=== PATIENT | male | born 1970 | race Caucasian/White ===

== ENCOUNTER 2019-08-14 04:54 | Inpatient (IN) ==
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
--- NOTE | 2019-07-26 12:06 | PAT Medication Instructions ---
Medication Instructions Date of Service July 26, 2019 Home Medications atorvastatin 80 mg PO QAM famotidine 40 mg PO QAM loratadine 10 mg PO QPM meloxicam 15 mg PO HS oxycodone-acetaminophen 1 tab PO Q6H PRN tizanidine 2 - 4 mg PO HS Take morning of surgery With a small sip of water, OTHERWISE NOTHING TO EAT OR DRINK AFTER MIDNIGHT: atorvastatin 80 mg PO QAM famotidine 40 mg PO QAM oxycodone-acetaminophen 1 tab PO Q6H PRN (if needed, may be taken up to four hours before surgery) Take evening before surgery loratadine 10 mg PO QPM meloxicam 15 mg PO HS oxycodone-acetaminophen 1 tab PO Q6H PRN (if needed) tizanidine 2 - 4 mg PO HS Other Notes If you have any questions please call us at [phone] or [phone] or [phone] or [phone]
--- NOTE | 2019-07-26 12:17 | Anesthesiology Consultation ---
Date of Service July 26, 2019 Assessment & Plan (1) Encounter for pre-operative examination: Chart Review Chart Review: Acceptable Risk for Surgery (pending pre op testing -- labs ekg and cxr-- and surgeon ordered PCP clearance) and Patient seen in Pre Admission Testing Teaching & Discussion Instructed NPO after midnight before surgery, except medications with 15 cc of water. Medication instructions provided according to the PAT guidelines. History Surgery Operation Date: 08/14/19 10:20 Proposed Procedures p Right Total Knee Arthroplasty - Eloy Marmolejo DO Height/Weight Height: 5 ft 8.5 in Weight: 142.7 kg Allergies Allergy/AdvReac Type Severity Reaction Status Date / Time No Known Allergies Allergy Verified 07/25/19 15:33 Medications Home Medications Medication Instructions Recorded Confirmed Last Taken atorvastatin 80 mg PO QAM 07/25/19 07/25/19 07/24/19 famotidine 40 mg PO QAM 07/25/19 07/25/19 07/24/19 loratadine 10 mg PO DAILY 07/25/19 07/25/19 Unknown meloxicam 15 mg PO HS 07/25/19 07/25/19 Unknown oxycodone-acetaminophen 1 tab PO Q6H PRN 07/25/19 07/25/19 Unknown tizanidine 2 - 4 mg PO HS 07/25/19 07/25/19 Unknown Past Medical History Medical History Acid reflux Arthritis Hiatal hernia High cholesterol History of kidney stones Low back pain Morbid obesity Sleep apnea CPAP Thyroid mass NO MEDS/MONITOR Trouble swallowing ENDOSCOPY FEW MONTHS AGO - NO FINDINGS Exercise / Class Metabolic Activity II 4-5 Yardwork/Stairs/Walk up hill (Denies CP or SOB with 1 FOS) Past Family History Family History Aunt Family history of diabetes mellitus Grandmother Family history of diabetes mellitus Past Surgical History Surgical History History of appendectomy History of cholecystectomy History of endoscopy History of hernia surgery History of right knee surgery MULTIPLE Past Anesthesia History No Hx of Anesthesia Complications and No Family Hx of Anesthesia Complications History of PONV No Hx of PONV and Hx of Motion Sickness Social History Smoking Status: Former smoker Do You Dip or Chew Tobacco: Yes (1 CAN PER DAY/ADVISED NPO) Smoking End Date: 12+YRS AGO Hx Alcohol Use: No (HX OF , NONE CURRENT) Hx Substance Use: No substance use type: does not use Review of Systems Pt denies any recent chest pain, shortness of breath, palpitations, cough, fever or URI. Physical Exam Vital Signs BP: 111/73 P: 90bpm SPO2: 99% RA T: 97.9 F R: 16 Constitutional + morbidly obese ENMT Mouth: + dentition abnormality (missing one) and + chipped teeth (many); no dental restorations and no loose teeth Thyromental Distance: > or= 3.5 Finger Breadths (3.5) Mallampati Class: III Neck + short neck, + thick neck and + facial hair (very long goatee, trimmed around mouth); neck extension not limited Respiratory normal respiratory effort Auscultation: lungs clear to auscultation bilaterally Cardiovascular Rate/Rhythm: regular rate and regular rhythm Heart Sounds: no murmur
--- NOTE | 2019-07-26 12:55 | XRay Report ---
XR chest Pre-admission PA/Lat CLINICAL HISTORY: 48 years-old Male presenting with preoperative assessment. TECHNIQUE: PA and lateral views of the chest were obtained. COMPARISON: None. FINDINGS: Cardiomediastinal silhouette normal. Lungs and pleural spaces clear. Osseous structures normal. Small hiatal hernia suggested. IMPRESSION: 1. No acute cardiopulmonary disease. ACT 112: Negative or not required by law. Electronically signed by: Rudy Shelton M.D. 07/26/2019 12:53 PM
[2019-07-26 12:58] LABS: Appearance Urine Clear (Clear); Bilirubin Urine Negative (Negative); Blood Urine Negative (Negative); Color Urine Yellow; Glucose Urine UA Negative (Negative); Ketones Urine Negative (Negative); Leukocyte Esterase Urine Negative (Negative); Nitrite Urine Negative (Negative); Protein Urine Negative (Negative); Specific Gravity Urine 1.009 (1.000-1.030); Urobilinogen Urine Negative (Negative)
[2019-07-26 12:59] LABS: Basophils # (auto) 0.01 K/uL (0-0.2); Basophils % (auto) 0.2 %; Eosinophils # (auto) 0.16 K/uL (0-0.5); Eosinophils % (auto) 2.8 %; Hemoglobin 15.7 g/dL (14.0-18.0); Immature Granulocytes # (auto) 0.01 K/uL (0.00-0.02); Immature Granulocytes % (auto) 0.2 %; Lymphocytes # (auto) 1.56 K/uL (1.2-3.4); Lymphocytes % (auto) 27.7 %; Mean Corpuscular Hgb Conc 34.1 g/dL (32-36); Mean Corpuscular Volume 93.7 fL (80-100); Mean Platelet Volume 9.6 fL (7.4-10.4); Monocytes # (auto) 0.29 K/uL (0.11-0.59); Monocytes % (auto) 5.2 %; Neutrophils % (auto) 63.9 %; Platelet Count 184 K/uL (130-400); RDW Coefficient of Variation 13.1 % (11.5-14.5); RDW Standard Deviation 44.7 fL (36.4-46.3); Red Blood Count 4.91 M/uL (4.7-6.1); White Blood Count 5.63 K/uL (4.8-10.8)
--- NOTE | 2019-07-26 13:03 | Electrocardiogram Report ---
Test Reason : Blood Pressure : / mmHG Vent. Rate : 082 BPM Atrial Rate : 082 BPM P-R Int : 140 ms QRS Dur : 090 ms QT Int : 348 ms P-R-T Axes : 021 052 021 degrees QTc Int : 406 ms Normal sinus rhythm Normal ECG No previous ECGs available Confirmed by Dillon Higgins ([id number]) on 07/26/2019 1:03:18 PM Referred By: Eloy Marmolejo Confirmed By:Dillon Higgins
[2019-07-26 13:05] LABS: Partial Thromboplastin Time 26.3 Seconds (21.0-31.0); Prothrombin Time 10.3 Seconds (9.0-12.0)
[2019-07-26 13:08] LABS: Albumin Level 3.8 gm/dl (3.4-5.0); BUN Creatinine Ratio 13.2 (10-20); Creatinine Clr Calc Pharmacy 113.2 ml/min; Est GFR (African American) 88.9; Est GFR (Non-African American) 76.7; Potassium 3.8 mmol/L (3.5-5.1)
[2019-07-26 13:09] LABS: Estimated Average Glucose 108 mg/dl; Hemoglobin A1C 5.4 % (4.5-5.6)
[2019-08-14] MEDS ORDERED: ACETAMINOPHEN 500 MG TAB PO SCH (06:00)
[2019-08-14] MEDS ORDERED: LR 500ML BOLUS, THEN 15ML/HR IV SCH (06:00)
[2019-08-14] MEDS ORDERED: CeleBREX 200 MG CAP PO SCH (06:00)
[2019-08-14] MEDS ORDERED: TRANEXAMIC ACID 1,000 MG **IV Intra-op IV SCH (06:00)
[2019-08-14] MEDS ORDERED: CEFAZOLIN 3000MG 72.5 ML IV SCH (06:00)
[2019-08-14] MEDS ORDERED: ROPIVACAINE 0.5% HCL/PF 150 MG, BUPIVACAINE 0.5% MPF 30 ML, EPINEPHrine 30MG/30ML (OR U... INFIL SCH (06:00)
[2019-08-14] MEDS ORDERED: GABAPENTIN 900 MG DOSE PO SCH (06:00)
[2019-08-14] MEDS ORDERED: TRANEXAMIC ACID 1,000 MG **IV Pre-op IV SCH (06:00)
[2019-08-14] MEDS ORDERED: dexAMETHasone 4 MG TAB PO SCH (06:00)
[2019-08-14] MEDS ORDERED: FAMOTIDINE 20 MG TAB PO SCH (06:00)
[2019-08-14] MEDS ORDERED: ROPIVACAINE 0.5% 5 MG/ML 30 ML VIAL ONE (06:15)
[2019-08-14] MEDS ORDERED: BUPIVACAINE 0.5 % 5 MG/1 ML PF 10ML VIAL ONE (06:15)
[2019-08-14] MEDS ORDERED: ORTHO JOINT ANESTHETIC ONE (06:32)
[2019-08-14] MEDS ORDERED: BACITRACIN INJ 50,000 UNIT VIAL ONE (06:32)
[2019-08-14] MEDS ORDERED: KETOROLAC 30 MG/ML VIAL IV PRN (06:41)
[2019-08-14] MEDS ORDERED: ONDANSETRON INJ 2 MG/ML 2 ML VIAL IV PRN ×2 (06:41→09:19)
[2019-08-14] MEDS ORDERED: HYDROmorphone INJ 1 MG/ML SYRINGE IV PRN (06:41)
[2019-08-14] MEDS ORDERED: ePHEDrine sulfate 50 MG/ML AMP IV PRN (06:41)
[2019-08-14] MEDS ORDERED: ATROPINE SULFATE 0.1 MG/ML 10ML SYR IV PRN (06:41)
[2019-08-14] MEDS ORDERED: LIDOCAINE HCL 2% 2 ML VIAL/AMP(20MG/ML) INFIL ONE (06:46)
[2019-08-14] MEDS ORDERED: MIDAZOLAM HCL 1 MG/ML 2ML VIAL ONE ×3 (06:46→07:28)
[2019-08-14] MEDS ORDERED: PROPOFOL IV EMULSION 10 MG/ML 20 ML VIAL IV ONE (06:46)
[2019-08-14] MEDS ORDERED: fentaNYL citrate 100 MCG/2 ML VIAL ONE (06:46)
--- NOTE | 2019-08-14 07:08 | History & Physical Bridge Note ---
Date of Service August 14, 2019 History & Physical Bridge Note I have examined the patient, reviewed the History & Physical and in the interval since the performance of the History & Physical I have noted the following changes of clinical significance: no changes noted
--- NOTE | 2019-08-14 08:27 | Operative Report ---
Post Operative Report Pre & Post Diagnosis Operation Date: 08/14/19 07:00 Pre-Op Diagnosis: RIGHT KNEE OSTEOARTHRITIS Post-Op Diagnosis: RIGHT KNEE OSTEOARTHRITIS I identified the patient and participated in the time-out.: Yes Procedure Operation Date: 08/14/19 07:00 Actual Procedures p Right Total Knee Arthroplasty(Right) utilizing [employer] journey 2 patient matched total knee arthroplasty size 5 femur 4 tibia 11 polyethylene 32 oval patella- Eloy Marmolejo DO Surgeon Eloy Marmolejo DO [employer] [place] Estimated Blood Loss 5 Findings Consistent with Post-Op Diagnosis Patient presents with severe end-stage tricompartmental degenerative joint disease [id number] tricompartmentally subchondral sclerosis cystic changes marginal osteophytes varus alignment moderate to large effusion no response to conservative management Specimens Bone and cartilage Drains Medium bore Hemovac Complications none Disposition Accompanied Patient To Recovery: No Disposition: Recovery Room Indications Patient presents being seen today with planes of severe end-stage tricompartmental degenerative joint disease for right total knee arthroplasty for failed attempted conservative management clinic physical therapy anti- inflammatories relative rest activity modification corticosteroid injection Visco supplementation bracing patient presents the above intraoperative findings Description of Procedure After proper prepping and draping of the Right lower extremity anterior midline incision was made over the region of the extensor extensor mechanism after meticulous hemostasis was obtained and maintained in subcutaneous tissues a medial parapatellar incision was made The patella was subluxed lateralward the medial lateral gutter were cleaned from any hypertrophic synovitis and scar tissue of the distal femoral block was placed and the distal femoral osteotomy cut was made subsequently the chamfers anterior and posterior osteotomy cuts were made utilizing the 4-in-1 block the tibia was subsequently subluxed anteriorward medial and ateral meniscal remnants were excised in their entirety remnants of the anterior and posterior cruciate ligaments were excised in their entirety excellent exposure of the proximal tibia was obtained the tibial osteotomy guide was placed on the proximal tibial osteotomy cut was made once again the knee was irrigated with copious amounts of sterile saline solution the patella was subsequently everted lateralward thickened scar tissue around the patella was removed the patella was subsequently cut utilizing a freehand technique and was drilled prepared for final preparation and placement of patella socially flexion-extension gaps were checked and the equal and symmetric trials were placed to the appropriate femoral and tibial trials with poly-spacer being placed for equal flexion and extension gaps and full range of motion including extension to 0 and flexion to 140 the trial components after having been taken to recovery range of motion was subsequently removed meticulous hemostasis was obtained and maintained subsequently a knee block injection of joint cocktail including ropivacaine 0.5% 150 mg. Bupivacaine 0.5% epinephrine 1-200,030 mL's toradol 30 mg dexamethasone 4 mg ketamine 10 mg clonidine 100 micrograms normal saline solution 30 mg was infiltrated into the soft tissues of the posterior knee medial lateral gutters and periosteal synovium special attention was paid to protect neurovascular structures at all times subsequently trial components having been removed the knee was irrigated with sterile saline solution. debris was removed the proximal tibia was subsequently prepared and was made ready for the placement of the tibial component tibial component was also cemented and tamped into position the femoral component was subsequently placed and cemented in the position the patellar component was subsequently cemented in position because hemostasis once again obtained and maintained wound having been thoroughly irrigated with debridement and debridement lavage was performed as well as a medial parapatellar incision closed with #1 Vicryl in interrupted fashion subcutaneous was closed with #2 Vicryl skin was closed with skin clips. PA-C was necessary for prepping and drapping as well as wound closure of deep fascia Sub cutaneous tissue and skin and was necessary for the case. A sterile compressive dressing was placed patient was taken to recovery in stable condition of report dictated by Jaleel I attest to the content of the Intraoperative Record and any orders documented therein. Any exceptions are noted below. I attest to the content of the Intraoperative Record and any orders documented therein. Any exceptions are noted below.
[2019-08-14] MEDS ORDERED: bisacodyL 10 MG SUPP PR PRN (09:19)
[2019-08-14] MEDS ORDERED: NALOXONE HCL 0.4 MG/1 ML VIAL/CARP IV PRN (09:19)
[2019-08-14] MEDS ORDERED: METOCLOPRAMIDE HCL INJ 5 MG/ML 2 ML VIAL IV PRN (09:19)
--- NOTE | 2019-08-14 09:44 | XRay Report ---
XR knee RT 1 or 2V routine CLINICAL HISTORY: Surgical Post Op COMPARISON: None. DISCUSSION: Total right knee arthroplasty in good position. Could contact between prosthetic and unde rlying bone. There is no evidence for soft tissue swelling. IMPRESSION: Anatomic alignment posttotal right knee arthroplasty ACT 112: Negative or not required by law. The above report was generated using voice recognition software. It may contain grammatical, syntax or spelling errors. Electronically signed by: Fidel Wilson M.D. 08/14/2019 9:43 AM
--- NOTE | 2019-08-14 10:07 | Anesthesiology Progress Note ---
Date of Service August 14, 2019 Anesthesia Post Procedure Vital Signs Vital Signs: Temp Pulse Resp BP Pulse Ox 08/14/19 10:00 80 18 121/98 96 08/14/19 09:50 76 18 108/77 96 08/14/19 09:40 78 16 122/71 98 08/14/19 09:30 87 16 122/62 97 08/14/19 09:20 87 16 128/82 98 08/14/19 09:11 36.8 C 102 H 16 125/76 95 08/14/19 05:42 36.8 C 78 20 140/82 96 Pain Intensity Bilateral Knee: Pain Intensity: 8 Transfer of Care Handoff Completed per policy Notes Mental Status: alert / awake / arousable Patient Amnestic to Procedure: Yes Nausea / Vomiting: adequately controlled Pain: adequately controlled Airway Patency, RR, SpO2: stable & adequate BP & HR: stable & adequate Hydration State: stable & adequate Anesthetic Complications: no major complications apparent
[2019-08-14] MEDS ORDERED: ZOLPIDEM TARTRATE 5 MG TAB PO PRN (10:55)
[2019-08-14] MEDS: SODIUM CHLORIDE 0.9% 1000ML 1,000 ML IV SCH ×2 (11:00→22:28)
[2019-08-14] MEDS: KETOROLAC 30 MG/ML VIAL IV SCH ×2 (12:24→17:54)
[2019-08-14] MEDS: ACETAMINOPHEN 500 MG TAB PO SCH ×2 (13:37→21:00)
[2019-08-14] MEDS: MAGNESIUM HYDROXIDE SUSP 30 ML UDC PO PRN (14:36)
[2019-08-14] MEDS: CEFAZOLIN 2000MG 2,000 MG/15 ML SYR IV SCH ×2 (14:46→22:44)
[2019-08-14] MEDS: OXYCODONE HCL IR 5 MG TAB (IMMEDIATE RELEASE) PO PRN (19:45)
[2019-08-14] MEDS: DOCUSATE SODIUM 100 MG CAP PO SCH (20:56)
[2019-08-14] MEDS: ASPIRIN 81 MG ECTAB PO SCH (20:57)
[2019-08-14] MEDS: SENNA 8.6 MG TAB PO SCH (20:57)
[2019-08-14] MEDS: TIZANIDINE HCL 4 MG TABLET PO SCH (21:52)
[2019-08-15] MEDS: KETOROLAC 30 MG/ML VIAL IV SCH ×2 (00:09→06:10)
[2019-08-15] MEDS: OXYCODONE HCL IR 5 MG TAB (IMMEDIATE RELEASE) PO PRN ×5 (06:09→23:20)
[2019-08-15] MEDS: ACETAMINOPHEN 500 MG TAB PO SCH ×3 (06:09→22:02)
[2019-08-15 06:12] LABS: Hemoglobin 12.7 g/dL (14.0-18.0); Mean Corpuscular Hemoglobin 31.4 pg (25-34); Mean Corpuscular Hgb Conc 33.4 g/dL (32-36); Mean Corpuscular Volume 94.1 fL (80-100); Mean Platelet Volume 9.5 fL (7.4-10.4); Platelet Count 167 K/uL (130-400); RDW Coefficient of Variation 13.1 % (11.5-14.5); RDW Standard Deviation 44.9 fL (36.4-46.3); Red Blood Count 4.04 M/uL (4.7-6.1); White Blood Count 10.48 K/uL (4.8-10.8)
[2019-08-15 06:50] LABS: BUN Creatinine Ratio 17.2 (10-20); Calcium 8.4 mg/dl (8.5-10.1); Creatinine Clr Calc Pharmacy 123.8 ml/min; Est GFR (African American) 99.3; Est GFR (Non-African American) 85.7; Potassium 4.1 mmol/L (3.5-5.1)
--- NOTE | 2019-08-15 07:58 | Anesthesiology Progress Note ---
Date of Service August 15, 2019 Anesthesia Post Procedure Vital Signs Vital Signs: Temp Pulse Pulse Resp BP Pulse Ox 08/15/19 07:30 37.1 C 96 H 18 141/73 H 100 08/15/19 03:30 36.6 C 80 18 145/83 H 98 08/14/19 23:20 36.5 C 80 18 121/67 95 08/14/19 20:15 36.5 C 93 H 16 120/63 94 08/14/19 15:17 36.7 C 87 16 129/74 95 08/14/19 13:36 36.8 C 100 H 16 145/83 H 96 08/14/19 12:30 36.9 C 87 18 137/78 96 08/14/19 11:25 84 16 112/72 95 08/14/19 11:00 36.7 C 79 16 134/74 96 08/14/19 10:10 36.6 C 82 18 116/71 96 08/14/19 10:00 80 18 121/98 96 08/14/19 09:50 76 18 108/77 96 08/14/19 09:40 78 16 122/71 98 08/14/19 09:30 87 16 122/62 97 08/14/19 09:20 87 16 128/82 98 08/14/19 09:11 36.8 C 102 H 16 125/76 95 Pain Intensity Bilateral Knee: Pain Intensity: 8 Right Knee: Pain Intensity: 4 Notes Mental Status: alert / awake / arousable and participated in evaluation Patient Amnestic to Procedure: Yes Nausea / Vomiting: adequately controlled Pain: adequately controlled Airway Patency, RR, SpO2: stable & adequate BP & HR: stable & adequate Hydration State: stable & adequate Neuraxial Anesthesia: was administered and sensory block resolved Anesthetic Complications: no major complications apparent and Pt Satisfied with anesthetic care
[2019-08-15] MEDS: MULTIVITAMIN TAB PO SCH (07:59)
[2019-08-15] MEDS: FAMOTIDINE 40 MG TABLET PO SCH (07:59)
[2019-08-15] MEDS: ASPIRIN 81 MG ECTAB PO SCH ×2 (07:59→22:04)
[2019-08-15] MEDS: LORATADINE 10 MG TAB PO SCH (07:59)
[2019-08-15] MEDS: ATORVASTATIN 40 MG TAB PO SCH (07:59)
[2019-08-15] MEDS: DOCUSATE SODIUM 100 MG CAP PO SCH ×2 (07:59→22:03)
--- NOTE | 2019-08-15 08:09 | Orthopedic Progress Note ---
Date of Service August 15, 2019 Assessment & Plan (1) Arthritis of right knee: Postop day 1 status post right total knee arthroplasty PT/OT protocols. Weightbearing as tolerated. DVT prophylaxis with aspirin twice daily, SCDdavid, MAYO mckeon. Pain management with hydromorphone, oxycodone, Tylenol, Celebrex DC planning-patient hoping for home health services upon discharge. Subjective Postop day 1 Patient awake and alert. Currently lying in bed with his heel props placed by nursing staff for exercises. He states that his pain is fairly well controlled. Patient did not sleep well. He denies any shortness of breath, chest pain, lightheadedness. He is hoping to go home today. Physical Exam Physical Exam: Dressings are clean, dry, and intact. Calves are soft and nontender. Neurovascular is intact. Toes are mobile. He has good dorsiflexion and plantarflexion of the ankle and foot on the operative side. Hemovac drainage was 100 cc from the previous shift. Results & Data ([facility]) Vital Signs (Past 12 Hours) Vital Signs Temp Pulse Resp BP Pulse Ox 08/15/19 07:30 37.1 C 96 H 18 141/73 H 100 08/15/19 03:30 36.6 C 80 18 145/83 H 98 08/14/19 23:20 36.5 C 80 18 121/67 95 08/14/19 20:15 36.5 C 93 H 16 120/63 94 Laboratory Results Laboratory Results WBC 10.48 K/uL (4.8-10.8) 08/15/19 05:47 RBC 4.04 M/uL (4.7-6.1) L 08/15/19 05:47 Hgb 12.7 g/dL (14.0-18.0) L 08/15/19 05:47 Hct 38.0 % (42-52) L 08/15/19 05:47 MCV 94.1 fL (80-100) 08/15/19 05:47 MCH 31.4 pg (25-34) 08/15/19 05:47 MCHC 33.4 g/dL (32-36) 08/15/19 05:47 RDW Std Deviation 44.9 fL (36.4-46.3) 08/15/19 05:47 RDW Coeff of Emilee 13.1 % (11.5-14.5) 08/15/19 05:47 Plt Count 167 K/uL (130-400) 08/15/19 05:47 MPV 9.5 fL (7.4-10.4) 08/15/19 05:47 Immature Gran % (Auto) 0.2 % 07/26/19 12:22 Neut % (Auto) 63.9 % 07/26/19 12:22 Lymph % (Auto) 27.7 % 07/26/19 12:22 [place] % (Auto) 5.2 % 07/26/19 12:22 Eos % (Auto) 2.8 % 07/26/19 12:22 Baso % (Auto) 0.2 % 07/26/19 12:22 Immature Gran # (Auto) 0.01 K/uL (0.00-0.02) 07/26/19 12:22 Neut # (Auto) 3.60 K/uL (1.4-6.5) 07/26/19 12:22 Lymph # (Auto) 1.56 K/uL (1.2-3.4) 07/26/19 12:22 [place] # (Auto) 0.29 K/uL (0.11-0.59) 07/26/19 12:22 Eos # (Auto) 0.16 K/uL (0-0.5) 07/26/19 12:22 Baso # (Auto) 0.01 K/uL (0-0.2) 07/26/19 12:22 PT 10.3 Seconds (9.0-12.0) 07/26/19 12:22 INR 1.0 (0.9-1.1) 07/26/19 12:22 APTT 26.3 Seconds (21.0-31.0) 07/26/19 12:22 PTT Ratio 1.0 07/26/19 12:22 Sodium 139 mmol/L (136-145) 08/15/19 05:47 Potassium 4.1 mmol/L (3.5-5.1) 08/15/19 05:47 Chloride 110 mmol/L (98-107) H 08/15/19 05:47 Carbon Dioxide 24 mmol/L (21-32) 08/15/19 05:47 Anion Gap 6.0 (3-11) 08/15/19 05:47 BUN 18 mg/dl (7-18) 08/15/19 05:47 Creatinine 1.04 mg/dl (0.6-1.4) 08/15/19 05:47 Est Cr Clr Drug Dosing 123.8 ml/min 08/15/19 05:47 Est GFR ( Amer) 99.3 08/15/19 05:47 Est GFR (Non-Af Amer) 85.7 08/15/19 05:47 BUN/Creatinine Ratio 17.2 (10-20) 08/15/19 05:47 Glucose 141 mg/dl (70-99) H 08/15/19 05:47 Estimat Average Glucose 108 mg/dl 07/26/19 12:22 Hemoglobin A1c 5.4 % (4.5-5.6) 07/26/19 12:22 Calcium 8.4 mg/dl (8.5-10.1) L 08/15/19 05:47 Albumin 3.8 gm/dl (3.4-5.0) 07/26/19 12:20 Urine Color Yellow 07/26/19 12:22 Urine Appearance Clear (Clear) 07/26/19 12:22 Urine pH 5.0 (4.5-7.5) 07/26/19 12:22 Ur Specific [place] 1.009 (1.000-1.030) 07/26/19 12:22 Urine Protein Negative (Negative) 07/26/19 12:22 Urine Glucose (UA) Negative (Negative) 07/26/19 12:22 Urine Ketones Negative (Negative) 07/26/19 12:22 Urine Blood Negative (Negative) 07/26/19 12:22 Urine Nitrite Negative (Negative) 07/26/19 12:22 Urine Bilirubin Negative (Negative) 07/26/19 12:22 Urine Urobilinogen Negative (Negative) 07/26/19 12:22 Ur Leukocyte Esterase Negative (Negative) 07/26/19 12:22 Blood Type O Positive 07/26/19 12:22 Antibody Screen NEGATIVE 07/26/19 12:22
[2019-08-15] MEDS: HYDROmorphone INJ 1 MG/ML SYRINGE IV PRN ×2 (16:25→20:38)
[2019-08-15] MEDS ORDERED: CeleBREX 200 MG CAP PO SCH (21:00)
[2019-08-15] MEDS: SENNA 8.6 MG TAB PO SCH (22:02)
[2019-08-15] MEDS: TIZANIDINE HCL 4 MG TABLET PO SCH (22:25)
[2019-08-16] MEDS: HYDROmorphone INJ 1 MG/ML SYRINGE IV PRN ×2 (00:42→05:51)
[2019-08-16] MEDS: OXYCODONE HCL IR 5 MG TAB (IMMEDIATE RELEASE) PO PRN ×3 (04:08→12:46)
[2019-08-16] MEDS: ACETAMINOPHEN 500 MG TAB PO SCH ×2 (05:50→13:12)
[2019-08-16] MEDS: MAGNESIUM HYDROXIDE SUSP 30 ML UDC PO PRN (06:04)
[2019-08-16] MEDS ORDERED: MoRPHine SULFATE CR 15 MG TABCR PO SCH (07:45)
--- NOTE | 2019-08-16 08:11 | Orthopedic Progress Note ---
Date of Service August 16, 2019 Assessment & Plan (1) Arthritis of right knee: Postop day 2 status post right total knee arthroplasty Pain control issues. With patient's chronic use of narcotics at home, we will make some changes to his pain medications as noted below. No plans for dc until his pain is under better control. PT/OT protocols. Weightbearing as tolerated. DVT prophylaxis with aspirin twice daily, SCDs, MAYO mckeon. Pain management with hydromorphone, oxycodone, Tylenol; Hold Celebrex. Add Toradol IV q6h and MS Contin 15mg po bid. Plan to re evalutate pain control later this afternoon. DC planning-patient hoping for home health services upon discharge. Subjective Postop day 2 status post right total knee arthroplasty. Patient currently sitting in the chair at the bedside. He states that he is having poor pain c ontrol at this time. Patient has a history of chronic narcotic use at home where he takes 10 mg of oxycodone every 6 hours. He is currently getting 10 mg every 4 hours along with IV hydromorphone, p.o. Celebrex, and p.o. acetaminophen. He has no other complaints at this time. Denies any shortness of breath, chest pain, lightheadedness. Physical Exam Physical Exam: Incision is clean, dry, and intact. Mild knee swelling noted. No erythema or bruising noted. Calves are soft and nontender. Neurovascular is intact. Toes are mobile. Results & Data ([facility]) Vital Signs (Past 12 Hours) Vital Signs Temp Pulse Resp BP Pulse Ox 08/15/19 23:00 36.8 C 87 18 115/70 97
[2019-08-16] MEDS: ASPIRIN 81 MG ECTAB PO SCH (08:17)
[2019-08-16] MEDS: DOCUSATE SODIUM 100 MG CAP PO SCH (08:17)
[2019-08-16] MEDS: ATORVASTATIN 40 MG TAB PO SCH (08:17)
[2019-08-16] MEDS: LORATADINE 10 MG TAB PO SCH (08:17)
[2019-08-16] MEDS: MULTIVITAMIN TAB PO SCH (08:17)
[2019-08-16] MEDS: FAMOTIDINE 40 MG TABLET PO SCH (08:17)
[2019-08-16] MEDS ORDERED: KETOROLAC 30 MG/ML VIAL ONE (08:21)
[2019-08-16] MEDS ORDERED: KETOROLAC 30 MG/ML VIAL IV SCH (09:00)
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
== END 2019-08-16 14:25 | disposition home health service (06) | DRG 470 ==
LOC: ASU 04:54 → 3E 09:19

== ENCOUNTER 2022-01-04 07:59 | Inpatient (IN) ==
--- NOTE | 2021-11-30 10:59 | PAT Medication Instructions ---
Medication Instructions Date of Service November 30, 2021 Home Medications Medication Instructions Recorded naloxone 4 mg/actuation nasal 1 sprays INTNAS ONCE #2 ea 08/16/19 spray (Narcan) atorvastatin 80 mg tablet 80 mg PO HS famotidine 40 mg tablet 40 mg PO QAM loratadine 10 mg capsule 10 mg PO HS tizanidine 4 mg tablet 4 mg PO HS zolpidem 5 mg tablet 5 mg PO HS PRN naloxone 4 mg/actuation nasal spray (Narcan) 1 sprays INTNAS ONCE oxycodone-acetaminophen 10 mg-325 mg tablet (Percocet) 1 tab PO QID albuterol sulfate 90 mcg/actuation aerosol inhaler 1 inh INHALATION QID PRN budesonide-formoterol HFA 160 mcg-4.5 mcg/actuation aerosol inhaler (Symbicort) 2 puff INHALATION BID tiotropium bromide 18 mcg capsule with inhalation device (Spiriva with HandiHaler) 1 cap INHALATION QAM Continue as directed naloxone 4 mg/actuation nasal spray (Narcan) 1 sprays INTNAS ONCE (if needed) Take morning of surgery With a small sip of water, OTHERWISE NOTHING TO EAT OR DRINK AFTER MIDNIGHT: famotidine 40 mg tablet 40 mg PO QAM oxycodone-acetaminophen 10 mg-325 mg tablet (Percocet) 1 tab PO QID (okay to take up to 4 hours prior to surgery if needed) albuterol sulfate 90 mcg/actuation aerosol inhaler 1 inh INHALATION QID PRN (if needed) budesonide-formoterol HFA 160 mcg-4.5 mcg/actuation aerosol inhaler (Symbicort) 2 puff INHALATION BID tiotropium bromide 18 mcg capsule with inhalation device (Spiriva with HandiHaler) 1 cap INHALATION QAM Take evening before surgery atorvastatin 80 mg tablet 80 mg PO HS loratadine 10 mg capsule 10 mg PO HS tizanidine 4 mg tablet 4 mg PO HS zolpidem 5 mg tablet 5 mg PO HS PRN (if needed) oxycodone-acetaminophen 10 mg-325 mg tablet (Percocet) 1 tab PO QID albuterol sulfate 90 mcg/actuation aerosol inhaler 1 inh INHALATION QID PRN (if needed) budesonide-formoterol HFA 160 mcg-4.5 mcg/actuation aerosol inhaler (Symbicort) 2 puff INHALATION BID Other Notes If you have any questions please call us at [phone] or [phone] or [phone] or [phone]
--- NOTE | 2021-12-03 08:34 | Anesthesiology Consultation ---
Date of Service December 03, 2021 Assessment & Plan (1) Encounter for pre-operative examination: - Awaiting response from pulmonary to optimization note (Dr. David Duran/[facility] lung sage). - COVID screening: Per assessment on 12/03: No known COVID-19 positive contacts or current COVID-19 related symptoms. Travel screen negative but is scheduled to travel to [place] (12/07-12/27). Will return via car (12/27). Patient will be staying with friend's house for fishing (max of 5 people total). No large gatherings. Patient vaccinated. Surgeon arranging preop COVID testing. Awaiting results. Given travel proximity prior to DOS and d/t Pt requiring admission post-operatively, plan for recheck with COVID [place] AM DOS. [place] order placed. - S/P Right TKA (08/14/19): SAB x1 attempt at L3-L4 + PNB at [facility] Chart Review Chart Review: Patient seen in Pre Admission Testing Teaching & Discussion Pre-Anesthesia Teaching/Discussion Notes: Instructed NPO after midnight before surgery,except medications with 15 cc of water. Medication instructions provided according to the PAT guidelines. History Surgery Operation Date: 01/04/22 10:45 Proposed Procedures p Left Total Knee Arthroplasty - Eloy Marmolejo, Height/Weight Height: 5 ft 8.5 in Weight: 146.1 kg Allergies Allergy/AdvReac Type Severity Reaction Status Date / Time morphine AdvReac Severe Vomiting Verified 11/30/21 09:43 Medications Home Medications Medication Instructions Recorded Confirmed Last Taken atorvastatin 80 mg tablet 80 mg PO HS 07/25/19 11/30/21 08/13/19 07:00 famotidine 40 mg tablet 40 mg PO QAM 07/25/19 11/30/21 08/13/19 07:00 loratadine 10 mg capsule 10 mg PO HS 07/25/19 11/30/21 08/13/19 07:00 tizanidine 4 mg tablet 4 mg PO HS 07/25/19 11/30/21 08/12/19 zolpidem 5 mg tablet 5 mg PO HS PRN 07/26/19 11/30/21 08/13/19 20:00 naloxone 4 mg/actuation nasal 1 sprays INTNAS ONCE #2 ea 08/16/19 11/30/21 Unknown spray (Narcan) oxycodone-acetaminophen 10 mg-325 1 tab PO QID 07/21/20 11/30/21 Unknown mg tablet (Percocet) albuterol sulfate 90 mcg/actuation 1 inh INHALATION QID PRN 11/30/21 11/30/21 Unknown aerosol inhaler budesonide-formoterol HFA 160 2 puff INHALATION BID 11/30/21 11/30/21 Unknown mcg-4.5 mcg/actuation aerosol inhaler (Symbicort) tiotropium bromide 18 mcg capsule 1 cap INHALATION QAM 11/30/21 11/30/21 Unknown with inhalation device (Spiriva with HandiHaler) Past Medical History Medical History Acid reflux Arthritis Hiatal hernia High cholesterol History of COVID-19 Dx 09/2019 > c/o ongoing breathing issues since having Covid (reason for inhaler), reports frequent "lung infections" since having Covid History of kidney stones History of seizure single episdoe> 20 years ago, controlled off anticonvulsants Left ankle swelling Chronic dating back to ~2017 Low back pain Morbid obesity Sleep apnea CPAP (non-compliant- difficult to use since having Covid per pt d/t acid reflux symptoms) Thyroid mass under surveillance, no meds Trouble swallowing Chronic issue with meats/large pills s/p unremarkable endoscopy 2018, no new issues Exercise / Class Metabolic Activity III < 4 Walking/Shop/Light housework (uses cane) Past Family History Family History Aunt Family history of diabetes mellitus Grandmother Family history of diabetes mellitus Other No family history of adverse response to anesthesia Past Surgical History Surgical History History of appendectomy History of cholecystectomy History of endoscopy History of hernia surgery History of open reduction and internal fixation (ORIF) procedure Right Femur History of right knee joint replacement Right TKA (08/14/19): SAB x1 attempt at L3-L4 + PNB at [facility] History of right knee surgery multiple S/P hardware removal Right Femur Past Anesthesia History No Hx of Anesthesia Complications and No Family Hx of Anesthesia Complications History of PONV No Hx of PONV and No Hx of Motion Sickness Social History Smoking Status: Former smoker tobacco type: cigarettes and smokeless tobacco Do You Dip or Chew Tobacco: Yes (1 can/2 days (advised none DOS)) Smoking End Date: Quit 2008 Hx Alcohol Use: No (HX, NONE CURRENT) Hx Substance Use: No Review of Systems Patient denies chest pain, shortness of breath, fever, chills, cough, wheezing, palpitations. Physical Exam Vital Signs VITALS BP 124/88 P 80 TEMP 98.8 SP02 96%RA RESP 16 PHYSICAL Full cervical extension range of motion. Full TMJ range of motion. TMD 3 finger breaths Mallampati Score 3 Dentition: missing molars Lungs: clear throughout to auscultation Cardiac: regular rate and rhythm, no murmurs noted Spine: normal Carotid arteries: negative bruit Extremities: no edema Very thin, long milton- advised to trim/pt states he will trim "a little"- pt aware anesthesiologist may require further trimming/shaving DOS. Very short, thick neck Lab Results Anesthesia Preop Results Results Anesthesia Widget: WBC 7.09 K/uL (4.8-10.8) 12/03/21 Hgb 15.8 g/dL (14.0-18.0) 12/03/21 Hct 46.2 % (42-52) 12/03/21 Plt 232 K/uL (130-400) 12/03/21 Na 141 mmol/L (136-145) 12/03/21 K 4.1 mmol/L (3.5-5.1) 12/03/21 Cl 105 mmol/L (98-107) 12/03/21 CO2 28 mmol/L (21-32) 12/03/21 BUN 10 mg/dl (6-23) 12/03/21 Creat 1.11 mg/dl (0.6-1.4) 12/03/21 Glucose Level 106 mg/dl (70-99(Fasting)) H 12/03/21 PT 10.7 Seconds (9.0-12.0) 12/03/21 PTT 26.8 Seconds (21.0-31.0) 12/03/21 INR 1.0 (0.9-1.1) 12/03/21 TSH 2.069 uIu/ml (0.300-4.500) 12/03/21 HA1c 5.5 % (4.5-5.6) 12/03/21 Urine Color Dark Yellow 12/03/21 Urine Appearance Clear (Clear) 12/03/21 Urine pH 5.0 (4.5-7.5) 12/03/21 Urine Specific [place] 1.037 (1.000-1.030) H 12/03/21 Urine Protein Trace (Negative) H 12/03/21 Urine Glucose (UA) Negative (Negative) 12/03/21 Urine Ketones Trace (Negative) H 12/03/21 Urine Blood Negative (Negative) 12/03/21 Urine Nitrite Negative (Negative) 12/03/21 Urine Bilirubin 1+ (Negative) H 12/03/21 Urine Urobilinogen Negative (Negative) 12/03/21 Urine Leukocyte Esterase Negative (Negative) 12/03/21 Urine WBC (Auto) 1-5 /hpf (0-5) 12/03/21 Urine RBC (Auto) 0-4 /hpf (0-4) 12/03/21 Urine Hyaline Casts (Auto) 10-30 /lpf (0-5) H 12/03/21 Urine Epithelial Cells (Auto) 20-30 /lpf (0-5) H 12/03/21 Urine Bacteria (Auto) Negative (Negative) 12/03/21 Blood Type O Positive 12/03/21 Antibody Screen NEGATIVE 12/03/21 Testing Electrocardiogram Date: 12/03/21 NSR at 87bpm. Unconfirmed report. Chest X-Ray Date: 03/29/21 Findings: + NAD
--- NOTE | 2021-12-09 07:52 | History & Physical Report ---
Date of Service December 09, 2021 date of surgery: 01/04/22 Procedure: Left Total Knee Arthroplasty Surgeon: Eloy Marmolejo Assessment & Plan (1) Arthritis of knee, left: Plan: Risks and benefits of procedure discussed in detail today, patient would like to proceed with a Left total knee replacement at [facility] as scheduled. will obtain medical clearance prior to surgery as well as obtain PATs at [facility]. Will place on ASA 81mg po bid x 1 month post op, f/u 2 weeks post op for routine post-operative care and x-ray, sooner if having any problems. will make arrangements for HHPT at the time of discharge. At this point in time, has failed conservative measures and would like to proceed with surgical intervention. Patient has a pain contract and will be receiving his post op prescription pain meds from his provider. The risks and benefits have been discussed including, but not limited to, risk of infection, nerve injury, stiffness, loss of motion, failure to improve, etc. Reasonable outcomes and options of treatment were discussed. An explanation of appropriate alternatives to the procedure that may be advantageous were discussed and their risks and benefits, as well as the risks and benefits of not proceeding with treatment. I offered to answer any additional inquiries concerning the treatment involved. All the patient's questions were answered. The patient is agreeable, understanding of the treatment plan and alternatives, and wishes to proceed with the treatment plan. History of Present Illness Chief Complaint: left knee pain Primary Care Provider: Jose Cortes DO Mr Bryant is a 51 year old male who is here for pre-op evaluation prior to a left total knee replacement, he complains of pain and stiffness in his left knee. He states that the symptoms have been chronic traumatic and describes the pain as dull and aching. Currently the patient states that the symptoms are moderate-severe and and his current pain as 8/10. The symptoms are aggravated by ascending stairs and descending stairs. In addition to left knee pain the patient is also experiencing clicking, popping and grinding. Prior pain medications include Percocet and has a pain contract with his PCP. Patient has had previous therapy. Allergies Allergy/AdvReac Type Severity Reaction Status Date / Time morphine AdvReac Severe Vomiting Verified 11/30/21 09:43 Home Medications Medication Instructions Recorded Confirmed Type atorvastatin 80 mg tablet 80 mg PO HS 07/25/19 11/30/21 History famotidine 40 mg tablet 40 mg PO QAM 07/25/19 11/30/21 History loratadine 10 mg capsule 10 mg PO HS 07/25/19 11/30/21 History tizanidine 4 mg tablet 4 mg PO HS 07/25/19 11/30/21 History zolpidem 5 mg tablet 5 mg PO HS PRN 07/26/19 11/30/21 History naloxone 4 mg/actuation nasal 1 sprays INTNAS ONCE #2 ea 08/16/19 11/30/21 Rx spray (Narcan) oxycodone-acetaminophen 10 mg-325 1 tab PO QID 07/21/20 11/30/21 History mg tablet (Percocet) albuterol sulfate 90 mcg/actuation 1 inh INHALATION QID PRN 11/30/21 11/30/21 History aerosol inhaler budesonide-formoterol HFA 160 2 puff INHALATION BID 11/30/21 11/30/21 History mcg-4.5 mcg/actuation aerosol inhaler (Symbicort) tiotropium bromide 18 mcg capsule 1 cap INHALATION QAM 11/30/21 11/30/21 History with inhalation device (Spiriva with HandiHaler) Past Med/Surg History Medical History Acid reflux Arthritis Hiatal hernia High cholesterol History of COVID-19 Dx 09/2019 > c/o ongoing breathing issues since having Covid (reason for inhaler), reports frequent "lung infections" since having Covid History of kidney stones History of seizure single episdoe> 20 years ago, controlled off anticonvulsants Left ankle swelling Chronic dating back to ~2017 Low back pain Morbid obesity Sleep apnea CPAP (non-compliant- difficult to use since having Covid per pt d/t acid reflux symptoms) Thyroid mass under surveillance, no meds Trouble swallowing Chronic issue with meats/large pills s/p unremarkable endoscopy 2018, no new issues Surgical History History of appendectomy History of cholecystectomy History of endoscopy History of hernia surgery History of open reduction and internal fixation (ORIF) procedure Right Femur History of right knee joint replacement Right TKA (08/14/19): SAB x1 attempt at L3-L4 + PNB at [facility] History of right knee surgery multiple S/P hardware removal Right Femur Family History Aunt Family history of diabetes mellitus Grandmother Family history of diabetes mellitus Other No family history of adverse response to anesthesia Social History Smoking Status: Former smoker Second Hand Exposure: No; Hx Alcohol Use: No (HX, NONE CURRENT) Hx Substance Use: No Preferred Language: Ethiopian Communication Ability: Effective Equipment Engineer Required: No Beliefs That Will Affect Care: None Current Living Situation: Parent Current Living Situation Comment: MOTHER Feels Safe at Home: Yes Assistive Devices: Cane, CPAP and Walker Review of Systems Review of Systems: All systems reviewed & are unremarkable except as noted in HPI & below Constitutional: no fever, no chills and no sweats Respiratory: no cough and no dyspnea Cardiovascular: no chest pain, no dyspnea and no orthopnea Gastrointestinal: no abdominal pain, no nausea and no vomiting Musculoskeletal: as per Subjective / HPI Physical Exam Physical Exam: HT: 5ft 8.5in WT: 147.1kg BP: 132/84 Pulse: 98 Constitutional: WD/WN, vitals as above no acute distress Respiratory: normal respiratory effort, lungs clear to auscultation no respiratory distress, no labored breathing and does not use accessory muscles Cardiovascular: RRR, no murmur, no edema Gastrointestinal (Abdomen): normal bowel sounds, soft, nontender, no hepatosplenomegaly Musculoskeletal: Knee: + knee abnormal to inspection (LEFT KNEE), + effusion (+1 effusion), + surgical incision (well healed portals), + limited ROM of knee (ROM 0/3/110), + knee ROM with crepitation, + joint line tenderness (medial joint line) and + Yousif's sign positive; no deformity, no skin erythema, no ecchymosis, no valgus laxity, no varus laxity, anterior drawer test negative, Roscoe's sign negative and pivot shift test negative Results & Data Results & Data ([facility]) Diagnostic Findings Left Knee X-ray: left knee series confirm advanced degenerative changes to the left knee, greatest medial compartments and patellofemoral joint, showing joint space narrowing, osteophyte formation and subchondral sclerosis. no acute bony pathology noted.
[~2022-01-04 07:59] MED LIST: ACETAMINOPHEN 500 MG TAB PO SCH; BUPIVACAINE 0.5 % 5 MG/1 ML PF 10ML VIAL ONE; CeleBREX 200 MG CAP PO SCH; FAMOTIDINE 20 MG TAB PO SCH; GABAPENTIN 900 MG DOSE PO SCH; LR 500ML BOLUS, THEN 15ML/HR IV SCH; METOCLOPRAMIDE HCL 10 MG TABLET PO SCH; ROPIVACAINE 0.5% 5 MG/ML 30 ML VIAL ONE; ROPIVACAINE 0.5% HCL/PF 150 MG, BUPIVACAINE 0.75% MPF 20 ML, EPINEPHrine 30MG/30ML (OR ... INSTIL SCH; TRANEXAMIC ACID 1,000 MG **IV Intra-op IV SCH; TRANEXAMIC ACID 1,000 MG **IV Pre-op IV SCH; dexAMETHasone 4 MG TAB PO SCH
--- NOTE | 2022-01-04 09:08 | History & Physical Bridge Note ---
Date of Service January 04, 2022 History & Physical Bridge Note I have examined the patient, reviewed the History & Physical and in the interval since the performance of the History & Physical I have noted the following changes of clinical significance: no changes noted
[2022-01-04] MEDS ORDERED: ONDANSETRON INJ 2 MG/ML 2 ML VIAL ONE (09:27)
[2022-01-04] MEDS ORDERED: MIDAZOLAM HCL 1 MG/ML 2ML VIAL ONE ×3 (09:27→11:15)
[2022-01-04] MEDS ORDERED: PROPOFOL IV EMULSION 10 MG/ML 20 ML VIAL IV ONE ×5 (09:27→12:54)
[2022-01-04] MEDS ORDERED: LIDOCAINE 2% 2 ML VIAL/AMP(20MG/ML) INFIL ONE (09:27)
[2022-01-04] MEDS ORDERED: ORTHO JOINT ANESTHETIC ONE (10:53)
[2022-01-04] MEDS ORDERED: PROMETHAZINE HCL 12.5 MG in SODIUM CHLORIDE 0.9% 50 ML IV PRN (11:10)
[2022-01-04] MEDS ORDERED: ONDANSETRON INJ 2 MG/ML 2 ML VIAL IV PRN ×2 (11:10→14:52)
[2022-01-04] MEDS ORDERED: HYDROmorphone INJ 1 MG/ML SYRINGE IV PRN (11:10)
[2022-01-04] MEDS ORDERED: ATROPINE SULFATE 0.1 MG/ML 10ML SYR IV PRN (11:10)
[2022-01-04] MEDS ORDERED: ePHEDrine sulfate 50 MG/ML AMP IV PRN (11:10)
[2022-01-04] MEDS ORDERED: KETAMINE 50 MG/5 ML SYRINGE ONE (11:36)
[2022-01-04] MEDS ORDERED: LABETALOL HCL IV 5 MG/ML 20ML IV ONE ×2 (12:04→12:13)
--- NOTE | 2022-01-04 12:37 | Operative Report ---
Post Operative Report Pre & Post Diagnosis Operation Date: 01/04/22 10:45 Pre-Op Diagnosis: Left Knee Osteoarhtritis Post-Op Diagnosis: Left Knee Osteoarhtritis I identified the patient and participated in the time-out.: Yes Procedure Operation Date: 01/04/22 10:45 Actual Procedures p Left Total Knee Arthroplasty(Left) utilizing [employer] journey to nonblock total knee arthroplasty size femur 5 tibia for polytwelve patella 32 oval Eloy Marmolejo DO Surgeon Eloy Marmolejo DO President And Ceo [employer] OROURKE Estimated Blood Loss 5 Findings Consistent with Post-Op Diagnosis Patient presents with severe end-stage DJD varus alignment subchondral sclerosis marginal osteophyte subchondral cystic changes with eburnated lyaf-ze-sdmd and a moderate to large effusion Specimens Bone and cartilage Drains Medium bore Hemovac Anesthesia Type MAC Spinal Regional Complications none Disposition Accompanied Patient To Recovery: No Disposition: Recovery Room Indications Patient presents with severe end-stage DJD left knee with failed failed attempted conservative manage occluding physical therapy anti-inflammatories relative rest activity modification corticosteroid injection viscosupplementation Description of Procedure After proper prepping and draping of the left lower extremity anterior midline incision was made over the region of the extensor extensor mechanism after meticulous hemostasis was obtained and maintained in subcutaneous tissues a medial parapatellar incision was made The patella was subluxed lateralward the medial lateral gutter were cleaned from any hypertrophic synovitis and scar tissue of the distal femoral block was placed and the distal femoral osteotomy cut was made subsequently the chamfers anterior and posterior osteotomy cuts were made utilizing the 4-in-1 block the tibia was subsequently subluxed anteriorward medial and ateral meniscal remnants were excised in their entirety remnants of the anterior and posterior cruciate ligaments were excised in their entirety excellent exposure of the proximal tibia was obtained the tibial osteotomy guide was placed on the proximal tibial osteotomy cut was made once again the knee was irrigated with copious amounts of sterile saline solution the patella was subsequently everted lateralward thickened scar tissue around the patella was removed the patella was subsequently cut utilizing a freehand technique and was drilled prepared for final preparation and placement of patella socially flexion-extension gaps were checked and the equal and symmetric trials were placed to the appropriate femoral and tibial trials with poly-spacer being placed for equal flexion and extension gaps and full range of motion including extension to 0 and flexion to 140 the trial components after having been taken to recovery range of motion was subsequently removed meticulous hemostasis was obtained and maintained subsequently a knee block injection of joint cocktail including ropivacaine 0.5% 150 mg. Bupivacaine 0.5% epinephrine 1-200,030 mL's toradol 30 mg dexamethasone 4 mg ketamine 10 mg clonidine 100 micrograms normal saline solution 30 mg was infiltrated into the soft tissues of the posterior knee medial lateral gutters and periosteal synovium special attention was paid to protect neurovascular structures at all times subsequently trial components having been removed the knee was irrigated with sterile saline solution. debris was removed the proximal tibia was subsequently prepared and was made ready for the placement of the tibial component tibial component was also cemented and tamped into position the femoral component was subsequently placed and cemented in the position the patellar component was subsequently cemented in position because hemostasis once again obtained and maintained wound having been thoroughly irrigated with debridement and debridement lavage was performed as well as a medial parapatellar incision closed with #1 Vicryl in interrupted fashion subcutaneous was closed with #2 Vicryl skin was closed with skin clips. PA-C was necessary for prepping and drapping as well as wound closure of deep fascia Sub cutaneous tissue and skin and was necessary for the case. A sterile compressive dressing was placed patient was taken to recovery in stable condition of report dictated by Jaleel I attest to the content of the Intraoperative Record and any orders documented therein. Any exceptions are noted below.Due to the complex nature of the procedure, the entire surgery was performed with the operational assistance of Lane OROURKE. The cardiovascular physician assistant, under direct supervision, was involved in the actual performance of all aspects of the surgical procedure including hemostasis, tissue retraction and incision, instrument management, patient positioning, and wound closure. I attest to the content of the Intraoperative Record and any orders documented therein. Any exceptions are noted below.
--- NOTE | 2022-01-04 14:31 | XRay Report ---
XR knee LT 1 or 2V routine CLINICAL HISTORY: Postoperative evaluation. COMPARISON: None FINDINGS: Alignment of the total left knee arthroplasty is anatomic. There is no periprosthetic frac ture or unexpected radiopaque foreign body. There are surgical drains. IMPRESSION: Expected findings following total left knee arthroplasty. ACT 112: Negative or not required by law. Electronically signed by: Mark Álvarez M.D. 01/04/2022 2:30 PM
--- NOTE | 2022-01-04 14:31 | Anesthesiology Progress Note ---
Date of Service January 04, 2022 Anesthesia Post Procedure Vital Signs Vital Signs: Temp Pulse Pulse Resp BP BP Pulse Ox 01/04/22 14:25 86 15 120/80 96 01/04/22 14:15 89 14 113/84 95 01/04/22 14:05 85 21 135/75 97 01/04/22 13:55 90 20 147/95 H 99 01/04/22 13:45 80 19 121/88 98 01/04/22 13:35 87 14 125/85 96 01/04/22 13:25 89 14 137/98 97 01/04/22 13:18 36.0 C L 96 H 16 110/81 97 01/04/22 08:40 36.9 C 80 22 140/96 95 Pain Intensity Left Knee: Pain Intensity: 7 Transfer of Care Handoff Completed per policy Notes Mental Status: alert / awake / arousable Patient Amnestic to Procedure: Yes Nausea / Vomiting: adequately controlled Pain: adequately controlled Airway Patency, RR, SpO2: stable & adequate BP & HR: stable & adequate Hydration State: stable & adequate Neuraxial Anesthesia: was administered and sensory block is resolving Anesthetic Complications: no major complications apparent
[2022-01-04] MEDS ORDERED: ALBUTEROL HFA 8 GM INHALER INH PRN (14:52)
[2022-01-04] MEDS ORDERED: bisacodyL 10 MG SUPP PR PRN (14:52)
[2022-01-04] MEDS ORDERED: NALOXONE HCL 0.4 MG/1 ML VIAL/CARP IV PRN (14:52)
[2022-01-04] MEDS ORDERED: MAGNESIUM HYDROXIDE SUSP 30 ML UDC PO PRN (14:52)
[2022-01-04] MEDS ORDERED: ZOLPIDEM TARTRATE 5 MG TAB PO PRN (14:52)
[2022-01-04] MEDS: SODIUM CHLORIDE 0.9% 1000ML 1,000 ML IV SCH (15:49)
[2022-01-04] MEDS: ACETAMINOPHEN 500 MG TAB PO SCH ×2 (15:49→22:56)
[2022-01-04] MEDS: oxyCODONE HCL IR 5 MG TAB (IMMEDIATE RELEASE) PO PRN ×2 (16:52→21:16)
[2022-01-04] MEDS: HYDROmorphone INJ 0.5 MG/0.5 ML SYR IV PRN ×2 (18:51→23:44)
[2022-01-04] MEDS: ceFAZolin 2000MG 2,000 MG/15 ML SYR IV SCH (20:37)
[2022-01-04] MEDS: ATORVASTATIN 40 MG TAB PO SCH (20:43)
[2022-01-04] MEDS: LORATADINE 10 MG TAB PO SCH (20:43)
[2022-01-04] MEDS: SENNA 8.6 MG TAB PO SCH (20:43)
[2022-01-04] MEDS: tiZANidine HCL 4 MG TABLET PO SCH (20:43)
[2022-01-04] MEDS: ASPIRIN 81 MG ECTAB PO SCH (20:44)
[2022-01-04] MEDS: DOCUSATE SODIUM 100 MG CAP PO SCH (20:44)
[2022-01-05] MEDS: oxyCODONE HCL IR 5 MG TAB (IMMEDIATE RELEASE) PO PRN ×5 (02:05→19:20)
[2022-01-05] MEDS: SODIUM CHLORIDE 0.9% 1000ML 1,000 ML IV SCH (02:07)
[2022-01-05] MEDS: HYDROmorphone INJ 0.5 MG/0.5 ML SYR IV PRN ×3 (04:26→12:26)
[2022-01-05] MEDS: ACETAMINOPHEN 500 MG TAB PO SCH ×3 (05:20→22:08)
[2022-01-05] MEDS: ceFAZolin 2000MG 2,000 MG/15 ML SYR IV SCH (05:20)
[2022-01-05 06:25] LABS: Hematocrit (blood only) 37.5 % (42-52); Hemoglobin 12.8 g/dL (14.0-18.0); Mean Corpuscular Hemoglobin 32.2 pg (25-34); Mean Corpuscular Hgb Conc 34.1 g/dL (32-36); Mean Corpuscular Volume 94.5 fL (80-100); Mean Platelet Volume 10.1 fL (7.4-10.4); Platelet Count 222 K/uL (130-400); RDW Coefficient of Variation 13.4 % (11.5-14.5); RDW Standard Deviation 46.1 fL (36.4-46.3); Red Blood Count 3.97 M/uL (4.7-6.1); White Blood Count 12.74 K/uL (4.8-10.8)
[2022-01-05 06:45] LABS: BUN Creatinine Ratio 13.3 (10-20); Calcium 8.2 mg/dl (8.5-10.1); Est GFR (African American) 96.1 ml/min
[2022-01-05] MEDS: KETOROLAC 30 MG/ML VIAL IV SCH ×3 (09:09→22:08)
[2022-01-05] MEDS: ASPIRIN 81 MG ECTAB PO SCH ×2 (09:11→19:28)
[2022-01-05] MEDS: FAMOTIDINE 40 MG TABLET PO SCH (09:11)
[2022-01-05] MEDS: DOCUSATE SODIUM 100 MG CAP PO SCH ×2 (09:11→19:27)
[2022-01-05] MEDS: FLUTICASONE/VILANTEROL 100/25MCG 14 PUFFS/INHALER INH SCH (09:12)
[2022-01-05] MEDS: UMECLIDINIUM BROMIDE 62.5MCG/BLISTER 7 PUFFS/INHALER INH SCH (09:13)
[2022-01-05] MEDS: MULTIVITAMIN TAB PO SCH (09:14)
--- NOTE | 2022-01-05 09:15 | Orthopedic Progress Note ---
Date of Service January 05, 2022 Assessment & Plan (1) Arthritis of knee, left: Plan: Postop day 1 status post left total knee arthroplasty PT/OT protocols. Weightbearing as tolerated. DVT prophylaxis-aspirin p.o. twice daily, SCDs, MAYO mckeon. Pain management-patient with chronic pain medication usage at home. With his current state of pain control we will add Toradol 30 mg IV every 6 hours scheduled. We will also increase his oxycodone to 10 to 15 mg p.o. every 4 hours as needed pain. I have discussed this with pharmacy. DC planning-patient is trying to decide between home health services versus outpatient. Case management to discuss. Admission and Anticipated Discharge Date Admission Date: January 04, 2022 Subjective Postop day 1 Patient is sitting in a recliner chair at the bedside. States he is having pain this morning. Patient has chronic pain issues and has been on 10 mg of Percocet initially every 6 hours but he states this morning that his pain management team had bumped him up an additional tablet to 5 times a day just recently. He states that his pain management team that he sees will be writing his pain medic ations upon discharge. No other complaints at this time. Physical Exam Physical Exam: Dressings are clean, dry, and intact. Calves are soft and nontender. Neurovascular is intact. Toes are mobile. He has good dorsiflexion and plantarflexion of the left foot. Hemovac drainage was 225 mL from the prev ious shift. Results & Data ([facility]) Vital Signs (Past 12 Hours) Vital Signs Temp Pulse Resp BP Pulse Ox 01/05/22 06:17 36.4 C L 89 18 147/87 H 100 01/05/22 02:01 36.5 C 87 18 151/89 H 94 01/04/22 22:52 36.7 C 88 18 121/79 95 Laboratory Results Laboratory Results WBC 12.74 K/uL (4.8-10.8) H 01/05/22 05:41 RBC 3.97 M/uL (4.7-6.1) L 01/05/22 05:41 Hgb 12.8 g/dL (14.0-18.0) L 01/05/22 05:41 Hct 37.5 % (42-52) L 01/05/22 05:41 MCV 94.5 fL (80-100) 01/05/22 05:41 MCH 32.2 pg (25-34) 01/05/22 05:41 MCHC 34.1 g/dL (32-36) 01/05/22 05:41 RDW Std Deviation 46.1 fL (36.4-46.3) 01/05/22 05:41 RDW Coeff of Emilee 13.4 % (11.5-14.5) 01/05/22 05:41 Plt Count 222 K/uL (130-400) 01/05/22 05:41 MPV 10.1 fL (7.4-10.4) 01/05/22 05:41 Sodium 137 mmol/L (136-145) 01/05/22 05:41 Potassium 4.0 mmol/L (3.5-5.1) 01/05/22 05:41 Chloride 106 mmol/L (98-107) 01/05/22 05:41 Carbon Dioxide 25 mmol/L (21-32) 01/05/22 05:41 Anion Gap 6 (3-11) 01/05/22 05:41 BUN 14 mg/dl (6-23) 01/05/22 05:41 Creatinine 1.05 mg/dl (0.6-1.4) 01/05/22 05:41 Est Cr Clr Drug Dosing 121.0 ml/min 01/05/22 05:41 Est GFR ( Amer) 96.1 ml/min 01/05/22 05:41 Est GFR (Non-Af Amer) 83.0 ml/min 01/05/22 05:41 BUN/Creatinine Ratio 13.3 (10-20) 01/05/22 05:41 Glucose 137 mg/dl (70-99(Fasting)) H 01/05/22 05:41 Calcium 8.2 mg/dl (8.5-10.1) L 01/05/22 05:41 SARS-CoV-2, RNA, NAAT NEGATIVE (NEGATIVE) 01/04/22 08:26 Impressions Knee X-Ray 01/04/22 13:59 XR knee LT 1 or 2V routine CLINICAL HISTORY: Postoperative evaluation. COMPARISON: None FINDINGS: Alignment of the total left knee arthroplasty is anatomic. There is no periprosthetic fracture or unexpected radiopaque foreign body. There are surgical drains. IMPRESSION: Expected findings following total left knee arthroplasty. ACT 112: Negative or not required by law. Electronically signed by: Mark Álvarez M.D. 01/04/2022 2:30 PM
[2022-01-05] MEDS: SENNA 8.6 MG TAB PO SCH (19:27)
[2022-01-05] MEDS: ATORVASTATIN 40 MG TAB PO SCH (19:27)
[2022-01-05] MEDS: tiZANidine HCL 4 MG TABLET PO SCH (19:28)
[2022-01-05] MEDS: LORATADINE 10 MG TAB PO SCH (19:28)
[2022-01-06] MEDS: oxyCODONE HCL IR 5 MG TAB (IMMEDIATE RELEASE) PO PRN ×2 (01:49→06:33)
[2022-01-06] MEDS: KETOROLAC 30 MG/ML VIAL IV SCH ×2 (05:01→10:40)
[2022-01-06] MEDS: ACETAMINOPHEN 500 MG TAB PO SCH (05:01)
[2022-01-06] MEDS: ASPIRIN 81 MG ECTAB PO SCH (08:19)
[2022-01-06] MEDS: FAMOTIDINE 40 MG TABLET PO SCH (08:19)
[2022-01-06] MEDS: MULTIVITAMIN TAB PO SCH (08:19)
[2022-01-06] MEDS: UMECLIDINIUM BROMIDE 62.5MCG/BLISTER 7 PUFFS/INHALER INH SCH (08:20)
[2022-01-06] MEDS: FLUTICASONE/VILANTEROL 100/25MCG 14 PUFFS/INHALER INH SCH (08:20)
[2022-01-06] MEDS: DOCUSATE SODIUM 100 MG CAP PO SCH (08:26)
--- NOTE | 2022-01-06 09:06 | Orthopedic Progress Note ---
Date of Service January 06, 2022 Assessment & Plan (1) Arthritis of knee, left: Plan: Postop day 2 status post left total knee arthroplasty PT/OT protocols. Weightbearing as tolerated. DVT prophylaxis-aspirin p.o. twice daily, SCDs, MAYO mckeon. Pain management as written. Patient is currently on a pain management contract and will be getting his pain medications from his pain management team. DC planning- Planning for outpt PT. plan for discharge home today once a rrangements made for his pain medications. Admission and Anticipated Discharge Date Admission Date: January 05, 2022 Subjective Postop day 2 Patient currently awake and alert. Sitting up in bed. He appears more comfortable. States he has been having some difficulty in finalizing his pain medications with his pain management team. He has been in contact with them and with the insurance company and they are trying to get this rectified prior to the patient's discharge. No other complaints today. Physical Exam Physical Exam: Charlene dressing is clean, dry, and intact. Calves are soft and nontender. Neurovascular intact. Toes are mobile. Results & Data ([facility]) Vital Signs (Past 12 Hours) Vital Signs Temp Pulse Resp BP Pulse Ox 01/06/22 06:28 36.5 C 81 18 145/84 H 96 01/05/22 22:43 36.4 C 79 18 146/85 H 97
== END 2022-01-06 12:57 | disposition home or self-care (01) | DRG 470 ==
LOC: ASU 07:59 → PACUINP 07:59 → 3N 15:33
DX: Z96.651 Presence of right artificial knee joint; Z68.42 Body mass index [BMI] 45.0-49.9, adult; Z90.49 Acquired absence of other specified parts of digestive tract; Z87.442 Personal history of urinary calculi; Z88.6 Allergy status to analgesic agent; E66.01 Morbid (severe) obesity due to excess calories; E78.00 Pure hypercholesterolemia, unspecified; M17.12 Unilateral primary osteoarthritis, left knee; K21.9 Gastro-esophageal reflux disease without esophagitis